=== PATIENT | female | born 1980 | race Caucasian/White ===

== ENCOUNTER 2022-01-20 13:01 | Emergency (ER) | payer MEDICAID, SELFPAY ==
[2022-01-20 13:18] VITALS: BP 125/84; PULSE 86; RESP 18; TEMP 36.2; O2SAT 100; BMI 37.5
--- NOTE | 2022-01-20 13:42 | ED_ITS ---
Documented by User: RODGER Munguia 01/20/22 16:42 HPI - Back Pain/Injury General: Chief Complaint: Back Pain/Injury Stated Complaint: back,leg & neck pain Time Seen by Provider: 01/20/22 13:24 History of Present Illness: Patient states she is having pain in her upper neck upper back low back and going down her left leg. Was treated recently with prednisone and muscle laxer without any significant improvement. Patient has history of sciatica in the past. Patient said this pains been present for 2 weeks. Denies any recent tick bites though her for any significant length of time. Patient denies any fever chills nausea vomiting bowel or bladder problems. Patient says it hurts with movement. 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 Associated symptoms: Deny abdominal pain, chills, fever(s), nausea or vomiting Review of Systems Const: Denies: fever(s), chills or body aches Eyes: Denies: eye discomfort ENMT: Denies: throat pain Card: Denies: chest pain Resp: Denies: dyspnea GI: Denies: abdominal pain, nausea or vomiting Musc: Reports: neck pain, back pain and extremity pain; Denies: muscle cramps or muscle weakness Skin/Breast: Denies: rash Neuro: Denies: headache(s) Psych: Denies: depression or suicidal ideation PFSH ED PFSH: Family History Father Cancer Colon, Lung, and Liver Social History Smoking and tobacco status: current every day smoker Second hand smoke exposure: No Smoking risk assessment/counseling performed?: Yes Alcohol intake: never Desire information about alcohol rehabilitation?: No Counseling given: No Desire information about substance/drug rehabilitation?: No Counseling given: No Adopted: No Caregiver/support person: No Lives independently: Yes Household members: children Housing: House Marital status: Single Number of children: 3 Highest education level completed: 11th Grade service: No Current occupational status: employed History of recent travel: No Physical Exam Const: COMMON NORMALS: no acute distress, patient oriented x3 and alert HENMT: COMMON NORMALS: normocephalic and external ears normal HEAD & SCALP: normocephalic EXTERNAL EAR: Yes external ears normal Eye: COMMON NORMALS: EOMs intact bilaterally Neck/C-Spine: COMMON NORMALS: no JVD CERVICAL SPINE: Yes cervical ROM normal, No Cervical spine tenderness, Yes Paracervical muscle tenderness and No Paracervical spasm Resp: COMMON NORMALS: normal respiratory effort and No use of accessory muscles Cardio: COMMON NORMALS: no JVD GI: INSPECTION: Yes normal to inspection Back/Pelvis: LUMBAR SPINE/LOWER BACK: Yes paraspinal muscle tenderness, No straight leg raise positive right and Yes straight leg raise positive left OTHER: She has tenderness to the muscles upper and lower back and neck area. Also sciatic going down left leg. Just touching the skin seems to cause discomfort to the patient, evidence of rash or redness noted.Trapezius seems to be more tender than anything else. Extremity: COMMON NORMALS: normal to inspection and full ROM Neuro: COMMON NORMALS: patient oriented x3 SENSORIUM/ORIENTATION: Yes alert Psych: COMMON NORMALS: mental status grossly normal Skin: COMMON NORMALS: no rashes or lesions noted GENERAL SKIN EXAM: no rashes or lesions noted Course Vital Signs: Vital signs: Vital Signs Temperature 97.2 F L 01/20/22 13:18 Pulse Rate 86 01/20/22 13:18 Respiratory Rate 18 01/20/22 13:18 Blood Pressure 125/84 01/20/22 13:18 Pulse Oximetry 100 01/20/22 13:18 MDM - Back Pain/Injury Medical Decision Making Presents with generalized muscle tenderness and neck back and sciatica going down the left leg. Patient was treated earlier a week ago with steroids and muscle relaxer did not have much improvement. Patient denies any injury at work. Patient's laboratory studies were negative except elevated CRP, sed rate was normal. Diagnosis atypical muscle pain. Patient's follow-up primary care provider take medication as directed. Off work for the next couple days. Apply moist heat to help with discomfort. Return to the ER for worsening symptoms. Labs : 01/20/22 14:08 01/20/22 14:08 Laboratory Results WBC 8.3 10^3/uL (4.0-10.0) 01/20/22 14:08 RBC 4.86 10^6/uL (4.1-5.3) 01/20/22 14:08 Hgb 14.8 g/dL (11.5-15.3) 01/20/22 14:08 Hct 45.4 % (37.0-47.0) 01/20/22 14:08 MCV 93.4 fl (81-99) 01/20/22 14:08 MCH 30.5 pg (28.0-34.0) 01/20/22 14:08 MCHC 32.6 g/dL (30.0-36.0) 01/20/22 14:08 RDW 14.6 % (12.1-15.1) 01/20/22 14:08 Plt Count 255 10^3/cmm (130-400) 01/20/22 14:08 MPV 9.0 fL (7.4-10.4) 01/20/22 14:08 Neut % (Auto) 63.2 % 01/20/22 14:08 Lymph % (Auto) 29.1 % 01/20/22 14:08 [place] % (Auto) 5.7 % 01/20/22 14:08 Eos % (Auto) 0.6 % 01/20/22 14:08 Baso % (Auto) 0.8 % 01/20/22 14:08 Neut # (Auto) 5.21 10^3/uL (1.8-7.7) 01/20/22 14:08 Lymph # (Auto) 2.4 10^3/uL (0.8-4.8) 01/20/22 14:08 [place] # (Auto) 0.5 10^3/uL (0.2-0.9) 01/20/22 14:08 Eos # (Auto) 0.1 10^3/uL (0.0-0.8) 01/20/22 14:08 Baso # (Auto) 0.1 10^3/uL (0.0-0.1) 01/20/22 14:08 Nucleated RBC % (auto) 0 % 01/20/22 14:08 Nucleated RBCs # 0.0 /100WBC 01/20/22 14:08 ESR 4 mm/hr (0-15) 01/20/22 14:08 Sodium 139 mmol/L (136-145) 01/20/22 14:08 Potassium 3.7 mmol/L (3.5-5.1) 01/20/22 14:08 Chloride 99 mmol/L (98-107) 01/20/22 14:08 Carbon Dioxide 30 mmol/L (22-29) H 01/20/22 14:08 Anion Gap 13.7 (5-19) 01/20/22 14:08 BUN 11 mg/dL (6-20) 01/20/22 14:08 Creatinine 0.7 mg/dL (0.5-0.9) 01/20/22 14:08 GFR Calculation 92.2 mL/min (90-130) 01/20/22 14:08 Glucose 81 mg/dL (65-115) 01/20/22 14:08 Calculated Osmolality 286 mOsm/kg (285-295) 01/20/22 14:08 Calcium 8.6 mg/dL (8.5-10.5) 01/20/22 14:08 C-Reactive Protein 11.9 mg/L (0.0-4.9) H 01/20/22 14:08 Discharge Plan Discharge Patient Disposition: Home Clinical Impression: Muscle pain Condition: Stable Prescriptions: New tramadol 50 mg tablet 50 mg PO TID PRN (Reason: pain) Qty: 14 0RF No Action prednisone 10 mg tablets,dose pack See Rx Instructions PO PER PKG DIR Qty: 21 0RF Rx Instructions: PO PER PKG DIR cyclobenzaprine 10 mg tablet 10 mg PO BID PRN (Reason: muscle spasm) Qty: 14 0RF Discharge Orders: Discharge ED (Routine); Ordered 01/20/22 Ordered By: Chinedu Guerra Referrals: Jolanta Vivar FNP-C [Primary Care Provider] - Discharge Diet: Usual diet Discharge Activity: Increase activity as tolerated Activity Restrictions/Additional Instructions: Follow-up with medical provider as directed. Take medications as prescribed. Return to the ER or your medical provider if condition worsens. Please read and understand discharge instructions. If any questions ask please. 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 Comprehensive Documented by User: Dixon Menezes DO 01/20/22 16:44 HPI - Back Pain/Injury General: Chief Complaint: Back Pain/Injury Stated Complaint: back,leg & neck pain Time Seen by Provider: 01/20/22 13:24 PFSH ED PFSH: Family History Father Cancer Colon, Lung, and Liver Social History Smoking and tobacco status: current every day smoker Second hand smoke exposure: No Smoking risk assessment/counseling performed?: Yes Alcohol intake: never Desire information about alcohol rehabilitation?: No Counseling given: No Desire information about substance/drug rehabilitation?: No Counseling given: No Adopted: No Caregiver/support person: No Lives independently: Yes Household members: children Housing: House Marital status: Single Number of children: 3 Highest education level completed: 11th Grade service: No Current occupational status: employed History of recent travel: No Course Vital Signs: Vital signs: Vital Signs Temperature 97.2 F L 01/20/22 13:18 Pulse Rate 86 01/20/22 13:18 Respiratory Rate 18 01/20/22 13:18 Blood Pressure 125/84 01/20/22 13:18 Pulse Oximetry 100 01/20/22 13:18 MDM - Back Pain/Injury Medical Decision Making Presents with generalized muscle tenderness and neck back and sciatica going down the left leg. Patient was treated earlier a week ago with steroids and muscle relaxer did not have much improvement. Patient denies any injury at work. Patient's laboratory studies were negative except elevated CRP, sed rate was normal. Diagnosis atypical muscle pain. Patient's follow-up primary care provider take medication as directed. Off work for the next couple days. Apply moist heat to help with discomfort. Return to the ER for worsening symptoms. Chart reviewed and patient discussed with midlevel. Agree with assessment and plan. Labs : 01/20/22 14:08 01/20/22 14:08 Laboratory Results WBC 8.3 10^3/uL (4.0-10.0) 01/20/22 14:08 RBC 4.86 10^6/uL (4.1-5.3) 01/20/22 14:08 Hgb 14.8 g/dL (11.5-15.3) 01/20/22 14:08 Hct 45.4 % (37.0-47.0) 01/20/22 14:08 MCV 93.4 fl (81-99) 01/20/22 14:08 MCH 30.5 pg (28.0-34.0) 01/20/22 14:08 MCHC 32.6 g/dL (30.0-36.0) 01/20/22 14:08 RDW 14.6 % (12.1-15.1) 01/20/22 14:08 Plt Count 255 10^3/cmm (130-400) 01/20/22 14:08 MPV 9.0 fL (7.4-10.4) 01/20/22 14:08 Neut % (Auto) 63.2 % 01/20/22 14:08 Lymph % (Auto) 29.1 % 01/20/22 14:08 [place] % (Auto) 5.7 % 01/20/22 14:08 Eos % (Auto) 0.6 % 01/20/22 14:08 Baso % (Auto) 0.8 % 01/20/22 14:08 Neut # (Auto) 5.21 10^3/uL (1.8-7.7) 01/20/22 14:08 Lymph # (Auto) 2.4 10^3/uL (0.8-4.8) 01/20/22 14:08 [place] # (Auto) 0.5 10^3/uL (0.2-0.9) 01/20/22 14:08 Eos # (Auto) 0.1 10^3/uL (0.0-0.8) 01/20/22 14:08 Baso # (Auto) 0.1 10^3/uL (0.0-0.1) 01/20/22 14:08 Nucleated RBC % (auto) 0 % 01/20/22 14:08 Nucleated RBCs # 0.0 /100WBC 01/20/22 14:08 ESR 4 mm/hr (0-15) 01/20/22 14:08 Sodium 139 mmol/L (136-145) 01/20/22 14:08 Potassium 3.7 mmol/L (3.5-5.1) 01/20/22 14:08 Chloride 99 mmol/L (98-107) 01/20/22 14:08 Carbon Dioxide 30 mmol/L (22-29) H 01/20/22 14:08 Anion Gap 13.7 (5-19) 01/20/22 14:08 BUN 11 mg/dL (6-20) 01/20/22 14:08 Creatinine 0.7 mg/dL (0.5-0.9) 01/20/22 14:08 GFR Calculation 92.2 mL/min (90-130) 01/20/22 14:08 Glucose 81 mg/dL (65-115) 01/20/22 14:08 Calculated Osmolality 286 mOsm/kg (285-295) 01/20/22 14:08 Calcium 8.6 mg/dL (8.5-10.5) 01/20/22 14:08 C-Reactive Protein 11.9 mg/L (0.0-4.9) H 01/20/22 14:08 Discharge Plan Discharge Patient Disposition: Home Clinical Impression: Muscle pain Condition: Stable Prescriptions: New tramadol 50 mg tablet 50 mg PO TID PRN (Reason: pain) Qty: 14 0RF No Action prednisone 10 mg tablets,dose pack See Rx Instructions PO PER PKG DIR Qty: 21 0RF Rx Instructions: PO PER PKG DIR cyclobenzaprine 10 mg tablet 10 mg PO BID PRN (Reason: muscle spasm) Qty: 14 0RF Discharge Orders: Discharge ED (Routine); Ordered 01/20/22 Ordered By: Chinedu Guerra Referrals: Jolanta Vivar FNP-C [Primary Care Provider] - Discharge Diet: Usual diet Discharge Activity: Increase activity as tolerated Activity Restrictions/Additional Instructions: Follow-up with medical provider as directed. Take medications as prescribed. Return to the ER or your medical provider if condition worsens. Please read and understand discharge instructions. If any questions ask please. 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
[2022-01-20] MEDS: ketorolac 60 mg/2 mL INJ IM (13:58)
[2022-01-20] MEDS: acetaminophen-codeine 300-30mg Tablet 1 TAB PO (13:59)
[2022-01-20 14:14] LABS: Basophils # 0.1 10^3/uL (0.0-0.1); Basophils % 0.8 %; Eosinophils # 0.1 10^3/uL (0.0-0.8); Eosinophils % 0.6 %; Hematocrit 45.4 % (37.0-47.0); Hemoglobin 14.8 g/dL (11.5-15.3); Lymphocytes # 2.4 10^3/uL (0.8-4.8); Lymphocytes % 29.1 %; Mean Corpuscular HGB Conc 32.6 g/dL (30.0-36.0); Mean Corpuscular Hemoglobin 30.5 pg (28.0-34.0); Mean Corpuscular Volume 93.4 fl (81-99); Monocytes # 0.5 10^3/uL (0.2-0.9); Monocytes % 5.7 %; Neutrophils # 5.21 10^3/uL (1.8-7.7); Neutrophils % 63.2 %; Nucleated Red Blood Cells % 0 %; Platelet Count 255 10^3/cmm (130-400); Red Blood Count 4.86 10^6/uL (4.1-5.3); Red Cell Distribution Width 14.6 % (12.1-15.1); White Blood Count 8.3 10^3/uL (4.0-10.0)
[2022-01-20 14:23] LABS: Erythrocyte Sedimentation Rate 4 mm/hr (0-15)
[2022-01-20 14:53] LABS: Anion Gap 13.7 (5-19); Blood Urea Nitrogen 11 mg/dL (6-20); C Reactive Protein 11.9 mg/L (0.0-4.9); Calcium 8.6 mg/dL (8.5-10.5); Carbon Dioxide 30 mmol/L (22-29); Chloride 99 mmol/L (98-107); Glomerular Filtration Rate 92.2 mL/min (90-130); Glucose 81 mg/dL (65-115); Osmolality Calculated 286 mOsm/kg (285-295); Potassium 3.7 mmol/L (3.5-5.1); Sodium 139 mmol/L (136-145)
== END 2022-01-20 15:18 | disposition home or self-care (01) ==
PROVIDERS: Emergency Provider Nurse Practitioner Family; PCP Nurse Practitioner Family
DX: M79.18 Myalgia, other site (principal); M54.42 Lumbago with sciatica, left side; R79.82 Elevated C-reactive protein (CRP); F17.200 Nicotine dependence, unspecified, uncomplicated
CPT/HCPCS: 80048; 85025; 85651; 86140; 96372; 99283; J1885

== ENCOUNTER → 2022-07-21 11:49 | Outpatient (BNVA) | payer MEDICAID, SELFPAY | PROVIDERS: PCP Nurse Practitioner Family; Visit Provider Nurse Practitioner | DX: M26.629 Arthralgia of temporomandibular joint, unspecified side (principal); F41.1 Generalized anxiety disorder | CPT/HCPCS: 80053; 82607; 85025 ==

== ENCOUNTER → 2022-11-06 08:30 | Outpatient (BNVA) | payer MEDICAID, SELFPAY | PROVIDERS: PCP Nurse Practitioner Family; Visit Provider Nurse Practitioner | DX: E53.8 Deficiency of other specified B group vitamins (principal) | CPT/HCPCS: 82607 ==

== ENCOUNTER → 2023-02-05 14:28 | Outpatient (BNVA) | payer MEDICAID, SELFPAY | PROVIDERS: PCP Nurse Practitioner Family; Visit Provider Nurse Practitioner | DX: E53.8 Deficiency of other specified B group vitamins (principal) | CPT/HCPCS: 80053; 82607 ==

== ENCOUNTER 2023-02-18 12:01 | Outpatient (CLI) | payer MEDICAID, SELFPAY ==
--- NOTE | 2023-02-18 12:09 | MM_ITS ---
WS: [id number] BILATERAL 3D TOMOSYNTHESIS DIGITAL SCREENING MAMMOGRAPHY WITH CAD CLINICAL INFORMATION: Z12.39 - Encounter for other screening for malignant neop... HISTORY: Screening mammogram. No current complaints. COMPARISON: None. TECHNIQUE: Bilateral CC and MLO views. FINDINGS: The breasts are composed of nodular heterogeneous fibroglandular density tissue, which can limit the detection of small underlying mass lesions. No suspicious mass, asymmetry, calcifications, or archite ctural distortion. No evidence of malignancy. Incidental punctate calcifications. Vascular calcificat ion. MM/[place] [id number] IMPRESSION: BI-RADS: 2-Benign FOLLOW UP: 1 Year Follow-up Recommend return to annual screening mammography.
== END 2023-02-18 12:02 | disposition home or self-care (01) ==
PROVIDERS: PCP Nurse Practitioner Family; Visit Provider Nurse Practitioner
DX: Z12.31 Encounter for screening mammogram for malignant neoplasm of breast (principal)
CPT/HCPCS: 77063; 77067

== ENCOUNTER 2023-03-13 23:39 | Emergency (ER) | payer MEDICAID, SELFPAY ==
[2023-03-13 23:44] VITALS: BP 143/91; PULSE 91; RESP 14; O2SAT 97
--- NOTE | 2023-03-13 23:44 | ECG_ITS ---
[facility] Test Date: 2023-03-13 Pat Name: Nina Khalil Department: Room: Gender: Female Webbing Inspector: : 1980 Requested By: Kelly Jurado Order Number: [id number] Rhea MD: Amy Rivera M.D. Measurements Intervals [place] Rate: 91 P: 34 MO: 163 QRS: 5 QRSD: 93 T: 0 QT: 346 QTc: 428 Interpretive Statements SINUS RHYTHM LOW QRS VOLTAGE IN PRECORDIAL LEADS [QRS DEFLECTION < 1.0 mV IN CHEST LEADS] No previous ECG available for comparison Electronically Signed On 03-14-2023 15:36:46 CDT by Amy Rivera M.D. [id number]
--- NOTE | 2023-03-13 23:44 | XRR_ITS ---
PROCEDURE INFORMATION: Exam: XR Chest Exam date and time: 03/14/2023 12:05 AM Age: 42 years old Clinical indication: Pain; Chest pressure; Additional info: Cp TECHNIQUE: Imaging protocol: Radiologic exam of the chest. Views: 1 view. COMPARISON: CR XR cervical spine 3V* [id number] 01/19/2019 3:30 PM FINDINGS: Lungs: Unremarkable. No consolidation. Pleural spaces: Unremarkable. No pleural effusion. No pneumothorax. Heart/Mediastinum: Unremarkable. No cardiomegaly. Bones/joints: Unremarkable. XR/XR chest 1V portable [id number] IMPRESSION: No acute findings.
[2023-03-13 23:47] VITALS: BP 109/63; PULSE 77; RESP 16; TEMP 36.7; O2SAT 99
[2023-03-14 00:11] LABS: Basophils # 0.1 10^3/uL (0.0-0.1); Basophils % 1.2 %; Eosinophils # 0.1 10^3/uL (0.0-0.8); Eosinophils % 1.6 %; Hematocrit 45.7 % (37.0-47.0); Hemoglobin 14.5 g/dL (11.5-15.3); Lymphocytes # 2.8 10^3/uL (0.8-4.8); Lymphocytes % 36.6 %; Mean Corpuscular HGB Conc 31.7 g/dL (30.0-36.0); Mean Corpuscular Hemoglobin 29.1 pg (28.0-34.0); Mean Corpuscular Volume 91.6 fl (81-99); Mean Platelet Volume 9.1 fL (7.4-10.4); Monocytes # 0.5 10^3/uL (0.2-0.9); Monocytes % 6.7 %; Neutrophils # 4.11 10^3/uL (1.8-7.7); Neutrophils % 53.6 %; Nucleated Red Blood Cells % 0 %; Platelet Count 244 10^3/cmm (130-400); Red Blood Count 4.99 10^6/uL (4.1-5.3); Red Cell Distribution Width 14.5 % (12.1-15.1); White Blood Count 7.7 10^3/uL (4.0-10.0)
--- NOTE | 2023-03-14 00:11 | W.ED.CHESTPA ---
HPI - Chest Pain General: Chief Complaint: Chest Pain Stated Complaint: chest pains, dizziness Time Seen by Provider: 03/13/23 23:43 Source: patient Mode of arrival: ambulatory Limitations: no limitations History of Present Illness: 42-year-old female states she has been having some dizziness over the last 2 weeks she states that she is feeling the room spinning its been mild in nature she is taken meclizine states that it has helped she states that her main concern was today started having some sharp chest pain this evening its in the middle of her chest that chest is worse with palpation improved with rest she denies any dyspnea or nausea or diaphoresis. 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 History of bleeding ulcers TMJ arthralgia Right Surgical History No significant past surgical history Family History Father Cancer Colon, Lung, and Liver Mother Hypertension Lung disease Social History Smoking and tobacco status: current every day smoker Second hand smoke exposure: No Smoking risk assessment/counseling performed?: Yes Alcohol intake: never Desire information about alcohol rehabilitation?: No Counseling given: No Substance/Drug Use: never Desire information about substance/drug rehabilitation?: No Counseling given: No Adopted: No Caregiver/support person: No Lives independently: Yes Household members: children Housing: House Marital status: Single Number of children: 3 Highest education level completed: 11th Grade service: No Current occupational status: employed Physical Exam Const: COMMON NORMALS: no acute distress, patient oriented x3 and healthy appearing HENMT: COMMON NORMALS: normocephalic and atraumatic HEAD & SCALP: normocephalic and atraumatic Neck/C-Spine: COMMON NORMALS: full ROM and supple Chest: COMMONS NORMALS: normal inspection of the chest OTHER: Point tenderness noted to the chest Resp: COMMON NORMALS: normal respiratory effort, No retractions, No use of accessory muscles and clear to auscultation bilaterally AUSCULTATION: clear to auscultation bilaterally Cardio: COMMON NORMALS: regular rate, regular rhythm and No murmurs present (Cardio) RATE: regular rate RHYTHM: regular rhythm GI: COMMON NORMALS: Normal to inspection, nondistended, normoactive bowel sounds present, Soft to palpation, non-tender and no masses PALPATION: Yes Soft to palpation Extremity: COMMON NORMALS: normal to inspection and full ROM Neuro: COMMON NORMALS: patient oriented x3, moves all extremities and no focal motor deficits Psych: COMMON NORMALS: mental status grossly normal, Normal thought process present and cooperative THOUGHT PROCESS: Normal thought process present Skin: COMMON NORMALS: no rashes or lesions noted and no wounds GENERAL SKIN EXAM: no rashes or lesions noted Course Vital Signs: Vital signs: Vital Signs Temperature 98.1 F 03/13/23 23:47 Pulse Rate 77 03/13/23 23:47 Respiratory Rate 16 03/13/23 23:47 Blood Pressure 109/63 03/13/23 23:47 Pulse Oximetry 99 03/13/23 23:47 Oxygen Delivery Me thod Room Air 03/13/23 23:47 MDM - Chest Pain Medical Decision Making Patient presents for chest pains likely chest wall pain she is point tender in the center of her chest initial troponin is normal her story is atypical I do not believe she has acute coronary syndrome she is stable for discharge x-ray is normal as well she has no signs of a stroke her vertigo is likely peripheral and improves with meclizine she is to follow-up with PCP and return if worsening. Medical Records I reviewed the patient's medical records. Lab Data I reviewed the patient's lab results. 03/14/23 00:00 03/13/23 23:59 Laboratory Results WBC 7.7 10^3/uL (4.0-10.0) 03/14/23 00:00 RBC 4.99 10^6/uL (4.1-5.3) 03/14/23 00:00 Hgb 14.5 g/dL (11.5-15.3) 03/14/23 00:00 Hct 45.7 % (37.0-47.0) 03/14/23 00:00 MCV 91.6 fl (81-99) 03/14/23 00:00 MCH 29.1 pg (28.0-34.0) 03/14/23 00:00 MCHC 31.7 g/dL (30.0-36.0) 03/14/23 00:00 RDW 14.5 % (12.1-15.1) 03/14/23 00:00 Plt Count 244 10^3/cmm (130-400) 03/14/23 00:00 MPV 9.1 fL (7.4-10.4) 03/14/23 00:00 Neut % (Auto) 53.6 % 03/14/23 00:00 Lymph % (Auto) 36.6 % 03/14/23 00:00 [place] % (Auto) 6.7 % 03/14/23 00:00 Eos % (Auto) 1.6 % 03/14/23 00:00 Baso % (Auto) 1.2 % 03/14/23 00:00 Neut # (Auto) 4.11 10^3/uL (1.8-7.7) 03/14/23 00:00 Lymph # (Auto) 2.8 10^3/uL (0.8-4.8) 03/14/23 00:00 [place] # (Auto) 0.5 10^3/uL (0.2-0.9) 03/14/23 00:00 Eos # (Auto) 0.1 10^3/uL (0.0-0.8) 03/14/23 00:00 Baso # (Auto) 0.1 10^3/uL (0.0-0.1) 03/14/23 00:00 Nucleated RBC % (auto) 0 % 03/14/23 00:00 Nucleated RBCs # 0.0 /100WBC 03/14/23 00:00 Sodium 141 mmol/L (136-145) 03/13/23 23:59 Potassium 3.9 mmol/L (3.5-5.1) 03/13/23 23:59 Chloride 101 mmol/L (98-107) 03/13/23 23:59 Carbon Dioxide 28 mmol/L (22-29) 03/13/23 23:59 Anion Gap 15.9 (5-19) 03/13/23 23:59 BUN 12 mg/dL (6-20) 03/13/23 23:59 Creatinine 0.9 mg/dL (0.5-0.9) 03/13/23 23:59 Glucose 80 mg/dL (65-115) 03/13/23 23:59 Calculated Osmolality 291 mOsm/kg (285-295) 03/13/23 23:59 Calcium 9.5 mg/dL (8.5-10.5) 03/13/23 23:59 Total Bilirubin 0.2 mg/dL (0.15-1.2) 03/13/23 23:59 AST 19 U/L (0-32) 03/13/23 23:59 ALT 15 U/L (0-33) 03/13/23 23:59 Alkaline Phosphatase 96 U/L (35-105) 03/13/23 23:59 Troponin T Baseline 6 ng/L (0-10) 03/13/23 23:59 Total Protein 7.2 g/dL (6.6-8.7) 03/13/23 23:59 Albumin 4.3 g/dL (3.5-5.2) 03/13/23 23:59 Globulin 2.9 g/dL (1.3-4.6) 03/13/23 23:59 EKG Data EKG 1: I personally reviewed and interpreted this EKG as follows: EKG interpretation date: 03/13/23 EKG interpretation time: 23:45 Interpretation: nsr hr [address] or t wave abnormalities qrs 93 qtc 395 Discharge Plan Discharge Patient Disposition: Home Clinical Impression: Chest pain, Dizziness Condition: Stable Prescriptions: No Action cyanocobalamin (vitamin B-12) 1,000 mcg/mL solution 1,000 mcg IM .monthly Qty: 1 2RF hydroxyzine pamoate 25 mg capsule See Rx Instructions PO .COMPLEX Qty: 90 2RF Rx Instructions: 25mg AM and 50mg PM orally; nortriptyline 75 mg capsule 75 mg PO .at bedtime Qty: 30 2RF (DME) syringe with needle 3 mL 22 gauge x 1 syringe See Rx Instructions .ROUTE .MEDSUPPLY Qty: 1 2RF Rx Instructions: As directed sucralfate [Carafate] 100 mg/mL suspension 10 ml PO BID Qty: 600 2RF albuterol sulfate 90 mcg/actuation HFA aerosol inhaler 2 puff inhalation QID PRN (Reason: shortness of breath or wheezing) Qty: 6.7 0RF meclizine 25 mg tablet 25 mg PO BID PRN (Reason: dizziness) Qty: 60 0RF duloxetine [Cymbalta] 30 mg capsule,delayed release(DR/EC) 30 mg PO BID Qty: 60 2RF Discharge Orders: Discharge ED (Routine); Ordered 03/14/23 Ordered By: Kelly Jurado Referrals: Jolanta Vivar FNP-C [Primary Care Provider] - 1-3 days Discharge Diet: Advance as tolerated Discharge Activity: Resume usual activity Patient Instructions: Chest Pain (ED) Coding Level of Care Code ED Department Specialist for Madeline Ramos
[2023-03-14 00:31] LABS: Troponin(5th) Baseline 6 ng/L (0-10)
[2023-03-14 00:34] LABS: Alanine Aminotransferase 15 U/L (0-33); Albumin Level 4.3 g/dL (3.5-5.2); Alkaline Phosphatase 96 U/L (35-105); Anion Gap 15.9 (5-19); Aspartate Amino Transferase 19 U/L (0-32); Blood Urea Nitrogen 12 mg/dL (6-20); Calcium 9.5 mg/dL (8.5-10.5); Carbon Dioxide 28 mmol/L (22-29); Chloride 101 mmol/L (98-107); Globulin 2.9 g/dL (1.3-4.6); Glomerular Filtration Rate 68.7 mL/min (90-130); Glucose 80 mg/dL (65-115); Osmolality Calculated 291 mOsm/kg (285-295); Potassium 3.9 mmol/L (3.5-5.1); Sodium 141 mmol/L (136-145); Total Bilirubin 0.2 mg/dL (0.15-1.2); Total Protein 7.2 g/dL (6.6-8.7)
[2023-03-14 01:12] VITALS: BP 116/94; PULSE 79; RESP 16; O2SAT 97
== END 2023-03-14 01:14 | disposition home or self-care (01) ==
PROVIDERS: Emergency Provider Emergency Medicine; PCP Nurse Practitioner Family
DX: R42 Dizziness and giddiness (principal); R07.9 Chest pain, unspecified; F17.210 Nicotine dependence, cigarettes, uncomplicated
CPT/HCPCS: 71045; 80053; 84484; 85025; 93005; 99285; J2270; J2405

== ENCOUNTER 2023-04-03 15:48 | Outpatient (CLI) | payer MEDICAID, SELFPAY ==
--- NOTE | 2023-04-03 16:00 | MR_ITS ---
WS: [id number] MRI HEAD WITHOUT CONTRAST TECHNIQUE: Sagittal T1, T2 axial, T2 axial FLAIR, axial and coronal T1 images, axial susceptibility w eighted imaging, axial diffusion weighted images, and coronal T2 images were obtained. CLINICAL INFORMATION: R51.9 - Headache, unspecified COMPARISON: CT January 05, 2017 FINDINGS: No evidence restricted diffusion to suggest acute ischemia. Ventricular system and basal cisterns are patent. One or 2 tiny foci of T2 hyperintensity in the subcortical white matter of doubtful clinical significance but can be seen with migraine headaches. No significant parenchymal volume loss. Normal posterior fossa. Normal vascular flow voids at the skull base. No extra-axial fluid collections. No evidence of mass or mass effect. Paranasal sinuses and mastoid air cells are well aerated. Normal posterior nasopharynx and parapharyn geal fat. No hemosiderin on susceptibly weighted images. Normal optic chiasm and pituitary infundibul um. Temporal lobes and hippocampal formations are normal in appearance. MR/MR head wo con* [id number] IMPRESSION: 1. No evidence restricted diffusion to suggest acute ischemia. 2. One or 2 tiny foci of T2 hyperintensity in the subcortical white matter of doubtful clinical significance but can be seen with migraine headaches. 3. No other suspicious intracranial signal abnormalities. 4. No hemosiderin on susceptibly weighted images. 5. No other suspicious findings.
== END 2023-04-03 15:49 | disposition home or self-care (01) ==
LOC: RAD 15:49
PROVIDERS: PCP Nurse Practitioner Family; Visit Provider Nurse Practitioner
DX: R51.9 Headache, unspecified (principal); R42 Dizziness and giddiness
CPT/HCPCS: 70551

== ENCOUNTER → 2023-04-20 15:30 | Outpatient (BNVA) | payer MEDICAID, SELFPAY | PROVIDERS: PCP Nurse Practitioner Family; Visit Provider Nurse Practitioner | DX: E53.8 Deficiency of other specified B group vitamins (principal) | CPT/HCPCS: 80053; 82607 ==

== ENCOUNTER → 2023-07-20 15:51 | Outpatient (BNVA) | payer MEDICAID, SELFPAY | PROVIDERS: PCP Nurse Practitioner Family; Visit Provider Nurse Practitioner | DX: E53.8 Deficiency of other specified B group vitamins (principal); F41.1 Generalized anxiety disorder; M26.629 Arthralgia of temporomandibular joint, unspecified side; Z87.11 Personal history of peptic ulcer disease; G43.109 Migraine with aura, not intractable, without status migrainosus; E55.9 Vitamin D deficiency, unspecified; M54.9 Dorsalgia, unspecified; B02.23 Postherpetic polyneuropathy | CPT/HCPCS: 82306; 82607; 83735; 84443 ==

== ENCOUNTER → 2023-07-22 13:16 | Outpatient (BNVA) | payer MEDICAID, SELFPAY | PROVIDERS: PCP Nurse Practitioner Family; Visit Provider Nurse Practitioner Family | DX: M54.9 Dorsalgia, unspecified (principal) | CPT/HCPCS: 72072; 72100 ==

== ENCOUNTER → 2023-10-29 11:04 | Outpatient (BNVA) | payer MEDICAID, SELFPAY | PROVIDERS: PCP Nurse Practitioner; Visit Provider Nurse Practitioner | DX: E53.8 Deficiency of other specified B group vitamins (principal); E55.9 Vitamin D deficiency, unspecified; Z79.899 Other long term (current) drug therapy | CPT/HCPCS: 80053; 82306; 82607; 85025; 86003 ==

== ENCOUNTER → 2024-01-07 11:34 | Outpatient (BNVA) | payer MEDICAID, SELFPAY | PROVIDERS: PCP Nurse Practitioner; Visit Provider Nurse Practitioner | DX: E53.8 Deficiency of other specified B group vitamins (principal); E55.9 Vitamin D deficiency, unspecified; K21.9 Gastro-esophageal reflux disease without esophagitis | CPT/HCPCS: 80048; 82306; 82607 ==

== ENCOUNTER 2024-06-08 07:24 | Outpatient (CLI) | payer MEDICAID, SELFPAY ==
--- NOTE | 2024-06-08 07:30 | USCV_ITS ---
Nina Khalil Age: 43 Gender: F : 1980 Exam Date: 06/08/2024 07:40 Ordering Phys: Meet Joshua Technologist: [place] [facility] [place]: lt leg pain and swelling PROCEDURES: Venous duplex imaging was performed in only the left lower extremity. The following venous structures were evaluated: common femoral vein, profunda vein, proximal portion of the greater saphenous vein, superficial femoral vein, and the popliteal vein. In addition, the posterior tibial and peroneal trunk were evaluated. FINDINGS: Normal 2-D Doppler and augmentation and compressibility throughout the lower extremity venous structures. Additional imaging through the proximal calf veins also reveals no thrombus. Limited evaluation of the greater saphenous vein is patent with no thrombus. CONCLUSIONS No DVT left lower extremity. Technically limited 2D images. Dr. Sally Styles DO (Electronically Signed) Final Date: 08 June 2024 09:54 S
== END 2024-06-08 07:25 | disposition home or self-care (01) ==
LOC: RAD 07:24
PROVIDERS: PCP Nurse Practitioner; Visit Provider Nurse Practitioner
DX: M79.662 Pain in left lower leg (principal)
CPT/HCPCS: 93971

== ENCOUNTER 2024-06-10 10:54 | Emergency (ER) | payer MEDICAID, SELFPAY ==
[2024-06-10 12:20] VITALS: BP 102/71; PULSE 86; RESP 18; TEMP 36.6; O2SAT 96; BMI 43.0
--- NOTE | 2024-06-10 13:47 | ED_ITS ---
HPI - Extremity Problem General: Chief complaint: Extremity Problem,Nontraumatic Stated complaint: lt leg pain Time Seen by Provider: 06/10/24 13:34 Source: patient Mode of arrival: ambulatory Limitations: no limitations History of Present Illness: Patient is a 43-year-old female presents to ED today with a complaint of left lower extremity pain. Patient states she has had pain for a few weeks. She has not noticed any swelling to the leg. She has not noticed any color or temperature changes to the leg. She feels like pain is progressively worsening now affecting her foot. She states initially it was just her calf. She feels like sometimes when she walks the leg/calf spasms. She is not having muscle cramps elsewhere. She is not having any back or hip pain. Denies numbness, tingling, loss of sensation. MD Complaint: extremity pain Onset (ago): week(s) Pain Consistency: constant Location: left and lower extremity Radiation: none Relieving factors: nothing Exacerbating factors: walking Associated symptoms: Reports no associated symptoms; Deny chest pain, fever(s) or rash Related Data Previous Rx's Medication Instructions Recorded albuterol sulfate 90 mcg/actuation 2 puff inhalation QID PRN 12/10/22 aerosol inhaler shortness of breath or wheezing #6.7 grams cyanocobalamin (vitamin B-12) 1,000 mcg IM .monthly #1 mL 06/02/24 1,000 mcg/mL injection solution duloxetine 30 mg capsule,delayed 30 mg PO BID #60 caps 06/02/24 release (Cymbalta) famotidine 40 mg tablet (Pepcid) 40 mg PO DAILY #30 tabs 06/02/24 hydroxyzine pamoate 25 mg capsule See Rx Instructions PO .COMPLEX 06/02/24 anxiety #90 caps magnesium oxide 400 mg PO BID #60 tabs 06/02/24 nortriptyline 75 mg capsule 75 mg PO .at bedtime #30 caps 06/02/24 polyethylene glycol 3350 17 17 g PO BID PRN constipation #510 06/02/24 gram/dose oral powder (Miralax) grams propranolol 10 mg tablet 10 mg PO BID #60 tabs 06/02/24 syringe with needle 3 mL 22 gauge #1 ea 06/02/24 x 1 tizanidine 4 mg tablet 4 mg PO BID muscle spasticity #60 06/02/24 tabs zonisamide 100 mg capsule 100 mg PO BID #60 caps 06/02/24 Allergies Allergy/AdvReac Type Severity Reaction Status Date / Time hydrocodone Allergy ADR-Agitate Verified 06/02/24 09:13 d NSAIDS (Non-Steroidal Allergy ADR-Abdominal Verified 06/02/24 09:13 Anti-Inflamma Pain Review of Systems Const: Denies: fever(s), chills, body aches, fatigue or malaise Card: Denies: chest pain Resp: Denies: dyspnea Musc: Reports: extremity pain and muscle cramps; Denies: neck pain, back pain, extremity swelling, joint redness, joint warmth, limited range of motion, muscle weakness, decrease in muscle mass, loss of height or deformity Skin/Breast: Denies: rash Neuro: Denies: headache(s), numbness in extremities, weakness in extremities or sensory changes PFSH ED PFSH: Medical History Obesity, morbid, BMI 40.0-49.9 Migraine headache with aura TMJ arthralgia Right History of bleeding ulcers Facial paralysis/[place] palsy Right Surgical History No significant past surgical history Family History Father Cancer Colon, Lung, and Liver Mother Hypertension Lung disease Social History Smoking and tobacco/nicotine status: current every day tobacco/nicotine user Second hand smoke exposure: No Alcohol intake: never Substance/Drug Use: never Adopted: No Caregiver/support person: No Lives independently: Yes Household members: children Housing: House Marital status: Single Number of children: 3 Highest education level completed: 11th Grade service: No Current occupational status: employed Female Reproductive History: Date of last menstrual period: 06/05/23 Physical Exam Const: COMMON NORMALS: no acute distress, patient oriented x3, no limitations, alert and well nourished GENERAL APPEARANCE: cooperative NUTRITIONAL APPEARANCE: obese morbidly obese (BMI of 43) ORIENTATION/CONSCIOUSNESS: Yes awake, Yes oriented to person, Yes oriented to place and Yes oriented to time Resp: COMMON NORMALS: normal respiratory effort and clear to auscultation bilaterally AUSCULTATION: clear to auscultation bilaterally Cardio: COMMON NORMALS: regular rate and regular rhythm RATE: regular rate RHYTHM: regular rhythm Extremity: COMMON NORMALS: normal to inspection, full ROM, capillary refill normal, no joint enlargement, no clubbing, cyanosis or edema and no pedal edema GENERAL: Yes normal exam except as noted OTHER: TTP L LE from posterior knee distally through calf and foot; no edema noted; no color/temp changes when compared to R; both legs are cool to the touch with difficult to appreciate pulses; sensory intact; negative Cabrera's Neuro: COMMON NORMALS: patient oriented x3, moves all extremities, no focal motor deficits, no sensory deficits noted and gait normal SENSORIUM/ORIENTATION: Yes alert, Yes oriented to person, Yes oriented to place and Yes oriented to time Skin: COMMON NORMALS: no rashes or lesions noted GENERAL SKIN EXAM: no rashes or lesions noted Course Vital Signs: Vital signs: Vital Signs Temperature 97.9 F 06/10/24 12:20 Pulse Rate 86 06/10/24 12:20 Respiratory Rate 18 06/10/24 12:20 Blood Pressure 102/71 06/10/24 12:20 Pulse Oximetry 96 06/10/24 12:20 Oxygen Delivery Me thod Room Air, Nasal C annula 06/10/24 12:20 MDM - Extremity (Nontraumatic) Medical Decision Making XRs unlikely to be of benefit given no mechanism of trauma. US arterial/venous unremarkable. No Villaseñor's. Does not sound like this is originating from lumbar/sciatic. I do not suspect emergent etiology. Recommend she follow up with PCP for further evaluation. Lab Data Radiology Impressions Duplex Scan Lower Extremity Artery 06/10/24 13:48 IMPRESSION: No significant arterial stenosis or occlusion. XR interpretation done by ED provider, pending radiology final review (per US tech-negative for DVT; arterial US finalized at time of discharge) Discharge Plan Discharge Patient Disposition: Home Clinical Impression: Acute pain of left lower extremity Condition: Stable Prescriptions: No Action albuterol sulfate 90 mcg/actuation HFA aerosol inhaler 2 puff inhalation QID PRN (Reason: shortness of breath or wheezing) Qty: 6.7 0RF tizanidine 4 mg tablet 4 mg PO BID Qty: 60 2RF magnesium oxide 400 mg magnesium tablet 400 mg PO BID Qty: 60 0RF duloxetine [Cymbalta] 30 mg capsule,delayed release(DR/EC) 30 mg PO BID Qty: 60 2RF cyanocobalamin (vitamin B-12) 1,000 mcg/mL solution 1,000 mcg IM .monthly Qty: 1 2RF nortriptyline 75 mg capsule 75 mg PO .at bedtime Qty: 30 2RF hydroxyzine pamoate 25 mg capsule See Rx Instructions PO .COMPLEX Qty: 90 2RF Rx Instructions: 25mg AM and 50mg PM orally; famotidine [Pepcid] 40 mg tablet 40 mg PO DAILY Qty: 30 5RF polyethylene glycol 3350 [Miralax] 17 gram/dose powder 17 g PO BID PRN (Reason: constipation) Qty: 510 2RF propranolol 10 mg tablet 10 mg PO BID Qty: 60 2RF Rx Instructions: she does not tolerate 20mg (DME) syringe with needle 3 mL 22 gauge x 1 syringe See Rx Instructions .ROUTE .MEDSUPPLY Qty: 1 2RF Rx Instructions: As directed zonisamide 100 mg capsule 100 mg PO BID Qty: 60 2RF Discharge Orders: Discharge ED (Routine); Ordered 06/10/24 Ordered By: Alida Juarez Referrals: Meet Joshua, [employer] [Primary Care Provider] - Activity Restrictions/Additional Instructions: As we discussed ultrasounds of your arterial and venous systems are unremarkable. I do not have any suspicion for emergent etiology at this time thus are recommending you follow-up with your primary care provider for further evaluation into your discomfort. I hope you begin to feel better soon. Coding Level of Care Code ED Petroleum Transport Driver for Madeline Ramos
--- NOTE | 2024-06-10 13:48 | USCV_ITS ---
Nina Khalil Age: 43 Gender: F : 1980 Exam Date: 06/10/2024 14:28 Ordering Phys: Alida Juarez Technologist: HA [place] [facility] [place]: [place] HISTORY: LT calf pain into foot PROCEDURES: Venous duplex imaging was performed in only the left lower extremity. The following venous structures were evaluated: common femoral vein, profunda vein, proximal portion of the greater saphenous vein, superficial femoral vein, and the popliteal vein. In addition, the posterior tibial and peroneal trunk were evaluated. Serial compression, augmentation maneuvers, and spectral Doppler flow evaluation were performed. FINDINGS: Normal 2-D Doppler and augmentation and compressibility throughout the lower extremity venous structures. Additional imaging through the proximal calf veins also reveals no thrombus. Limited evaluation of the greater saphenous vein is patent with no thrombus. CONCLUSIONS No DVT left lower extremity. Dr. Sally Styles DO (Electronically Signed) Final Date: 10 June 2024 15:54 S
--- NOTE | 2024-06-10 13:48 | USR_ITS ---
PROCEDURE INFORMATION: Exam: US Duplex Left Lower Extremity Arteries Or Arterial Bypass Grafts Exam date and time: 06/10/2024 2:35 PM Age: 43 years old Clinical indication: Pain; Leg, lower; Left TECHNIQUE: Imaging protocol: Left Real-time duplex scan of the arteries or arterial bypass grafts of the left lower extremity with 2-D mar scale, color Doppler flow and spectral waveform analysis. Images documented and saved. COMPARISON: [place] [id number] 06/10/2024 2:28 PM FINDINGS: Left external iliac artery: The left common iliac artery shows no evidence of a significant stenosis. Left common femoral artery: Left common femoral artery is patent and without stenosis or occlusion. Left superficial femoral artery: Left superficial femoral artery is patent and without stenosis or occlusion. Left popliteal artery: Left popliteal artery is patent and without stenosis or occlusion. Left calf/foot arteries: Left posterior tibial artery is patent and without stenosis or occlusion. Left dorsalis pedis artery is patent and without stenosis or [place]. US/[place] [id number] IMPRESSION: No significant arterial stenosis or occlusion.
[2024-06-10 15:57] VITALS: BP 114/76; PULSE 89; O2SAT 96
== END 2024-06-10 15:58 | disposition home or self-care (01) ==
PROVIDERS: Emergency Provider Physician Assistant; PCP Nurse Practitioner
DX: M79.605 Pain in left leg (principal); Z72.0 Tobacco use
CPT/HCPCS: 93926; 93971; 99284

== ENCOUNTER 2024-08-12 16:54 | Emergency (ER) | payer MEDICAID, SELFPAY ==
[2024-08-12 17:11] VITALS: BP 115/82; PULSE 70; RESP 18; TEMP 36.6; O2SAT 99; BMI 42.4
[2024-08-12] MEDS: dexamethasone 10 mg/mL INJ IM (20:22)
[2024-08-12] MEDS: orphenadrine 30 mg/mL Inj 2 mL 60 MG IM (20:22)
--- NOTE | 2024-08-12 23:31 | W.ED.BACK ---
HPI - Back Pain/Injury General: Chief Complaint: Back Pain/Injury Stated Complaint: back and hip pain Time Seen by Provider: 08/12/24 19:30 Source: patient Mode of arrival: ambulatory Limitations: no limitations History of Present Illness: Patient is a 44-year-old female present emergency department complaining of back pain that has been bothering her for months. She states that the pain is radiating down the entirety of the left leg, denies any trauma or heavy lifting. She states that she was prescribed pregabalin and muscle relaxers recently, this has not done much. She has not received recent steroids, has never been seen by Ortho/spine surgery. No bowel or bladder incontinence or other symptoms at this time. States that the pain is 10/10 it is hard for her to transfer. MD elicited complaint: back pain Onset (ago): month(s) Timing: constant Severity: severe Similar Symptoms Previously: Yes Location: lumbar spine Radiation: left leg below the knee Exacerbating factors: movement Associated symptoms: Deny abdominal pain, chills, fever(s), nausea or vomiting Related Data Previous Rx's Medication Instructions Recorded albuterol sulfate 90 mcg/actuation 2 puff inhalation QID PRN 12/10/22 aerosol inhaler shortness of breath or wheezing #6.7 grams cyanocobalamin (vitamin B-12) 1,000 mcg IM .monthly #1 mL 06/02/24 1,000 mcg/mL injection solution duloxetine 30 mg capsule,delayed 30 mg PO BID #60 caps 06/02/24 release (Cymbalta) famotidine 40 mg tablet (Pepcid) 40 mg PO DAILY #30 tabs 06/02/24 hydroxyzine pamoate 25 mg capsule See Rx Instructions PO .COMPLEX 06/02/24 anxiety #90 caps magnesium oxide 400 mg PO BID #60 tabs 06/02/24 nortriptyline 75 mg capsule 75 mg PO .at bedtime #30 caps 06/02/24 polyethylene glycol 3350 17 17 g PO BID PRN constipation #510 06/02/24 gram/dose oral powder (Miralax) grams propranolol 10 mg tablet 10 mg PO BID #60 tabs 06/02/24 syringe with needle 3 mL 22 gauge #1 ea 06/02/24 x 1 tizanidine 4 mg tablet 4 mg PO BID muscle spasticity #60 06/02/24 tabs zonisamide 100 mg capsule 100 mg PO BID #60 caps 06/02/24 pregabalin 75 mg capsule (Lyrica) 75 mg PO BID #60 caps 07/28/24 prednisone 20 mg tablet 60 mg (3 x 20 mg) PO ONCE 5 days 08/12/24 #15 tabs Allergies Allergy/AdvReac Type Severity Reaction Status Date / Time hydrocodone Allergy ADR-Agitate Verified 08/12/24 17:16 d NSAIDS (Non-Steroidal Allergy ADR-Abdominal Verified 08/12/24 17:16 Anti-Inflamma Pain Review of Systems General: Reports: 10 or more systems reviewed and unremarkable except in HPI and below Const: Denies: fever(s) or chills Card: Denies: chest pain Resp: Denies: dyspnea or productive cough GI: Denies: abdominal pain, nausea, vomiting or diarrhea : Denies: flank pain Musc: Reports: back pain and extremity pain; Denies: neck pain, extremity swelling, joint pain, joint swelling, joint redness, joint warmth, limited range of motion or muscle weakness Skin/Breast: Denies: rash Neuro: Denies: headache(s), numbness in extremities or weakness in extremities PFSH ED PFSH: Medical History Obesity, morbid, BMI 40.0-49.9 Migraine headache with aura TMJ arthralgia Right History of bleeding ulcers 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 Right Surgical History No significant past surgical history Family History Father Cancer Colon, Lung, and Liver Mother Hypertension Lung disease Social History Smoking and tobacco/nicotine status: current every day tobacco/nicotine user Second hand smoke exposure: No Alcohol intake: never Substance/Drug Use: never Adopted: No Caregiver/support person: No Lives independently: Yes Household members: children Housing: House Marital status: Single Number of children: 3 Highest education level completed: 11th Grade service: No Current occupational status: employed Physical Exam Const: COMMON NORMALS: patient oriented x3 ORIENTATION/CONSCIOUSNESS: Yes awake OTHER: Appears uncomfortable, morbidly obese HENMT: COMMON NORMALS: normocephalic and atraumatic HEAD & SCALP: normocephalic and atraumatic Neck/C-Spine: COMMON NORMALS: full ROM Resp: COMMON NORMALS: normal respiratory effort, No retractions and clear to auscultation bilaterally AUSCULTATION: clear to auscultation bilaterally Cardio: COMMON NORMALS: regular rate, regular rhythm, S1 normal heart sound present and S2 normal heart sound present RATE: regular rate RHYTHM: regular rhythm HEART SOUNDS: S1 normal heart sound present and S2 normal heart sound present Back/Pelvis: OTHER: Tenderness palpation of lower back, no signs of trauma or deformity. Straight leg raise positive on the left. Extremity: NARRATIVE EXTREMITY EXAM: No calf swelling or overlying skin changes. DP/PT pulse 2+ bilaterally. Neuro: COMMON NORMALS: patient oriented x3, moves all extremities, no focal motor deficits, no sensory deficits noted and deep tendon reflexes 2+ bilaterally Skin: COMMON NORMALS: no rashes or lesions noted GENERAL SKIN EXAM: no rashes or lesions noted Course Vital Signs: Vital signs: Vital Signs Temperature 97.9 F 08/12/24 17:11 Pulse Rate 70 08/12/24 17:11 Respiratory Rate 18 08/12/24 17:11 Blood Pressure 115/82 08/12/24 17:11 Pulse Oximetry 99 08/12/24 17:11 MDM - Back Pain/Injury Medical Decision Making Patient here for acute on chronic back pain though this time it is down the entirety of her left leg instead of just her low back. I refer her to Ortho/spine for further evaluation and potentially an MRI, she was started on muscle relaxer and pregabalin recently. Will try a short course of steroids to help with any inflammation, due to atraumatic nature no need for imaging at this time. Reasons to return discussed No radiology studies performed this visit Discharge Plan Discharge Patient Disposition: Home Clinical Impression: Left lumbar radiculopathy Condition: Stable Prescriptions: New prednisone 20 mg tablet 60 mg PO ONCE 5 Days Qty: 15 0RF No Action albuterol sulfate 90 mcg/actuation HFA aerosol inhaler 2 puff inhalation QID PRN (Reason: shortness of breath or wheezing) Qty: 6.7 0RF pregabalin [Lyrica] 75 mg capsule 75 mg PO BID Qty: 60 0RF tizanidine 4 mg tablet 4 mg PO BID Qty: 60 2RF magnesium oxide 400 mg magnesium tablet 400 mg PO BID Qty: 60 0RF duloxetine [Cymbalta] 30 mg capsule,delayed release(DR/EC) 30 mg PO BID Qty: 60 2RF cyanocobalamin (vitamin B-12) 1,000 mcg/mL solution 1,000 mcg IM .monthly Qty: 1 2RF nortriptyline 75 mg capsule 75 mg PO .at bedtime Qty: 30 2RF hydroxyzine pamoate 25 mg capsule See Rx Instructions PO .COMPLEX Qty: 90 2RF Rx Instructions: 25mg AM and 50mg PM orally; famotidine [Pepcid] 40 mg tablet 40 mg PO DAILY Qty: 30 5RF polyethylene glycol 3350 [Miralax] 17 gram/dose powder 17 g PO BID PRN (Reason: constipation) Qty: 510 2RF propranolol 10 mg tablet 10 mg PO BID Qty: 60 2RF Rx Instructions: she does not tolerate 20mg (DME) syringe with needle 3 mL 22 gauge x 1 syringe See Rx Instructions .ROUTE .MEDSUPPLY Qty: 1 2RF Rx Instructions: As directed zonisamide 100 mg capsule 100 mg PO BID Qty: 60 2RF Discharge Orders: Discharge ED (Routine); Ordered 08/12/24 Ordered By: Valentino Lawrence Referrals: Meet Joshua, CATTLE DEALER-C [Primary Care Provider] - Patient Instructions: Lumbar Radiculopathy (ED) Activity Restrictions/Additional Instructions: Take steroids as prescribed and follow-up with orthopedic/spine. Continue taking your muscle relaxers at home. Ice and heat, gentle range of motion exercises as tolerated. Please return with any new or worsening. Coding Level of Care Code ED Senior Windows Systems Administrator for Madeline Ramos
--- NOTE | 2024-08-15 07:25 | DCPLANNER ---
messaged ortho for er f/u
== END 2024-08-12 20:26 | disposition home or self-care (01) ==
PROVIDERS: Emergency Provider Physician Assistant; PCP Nurse Practitioner
DX: M54.16 Radiculopathy, lumbar region (principal); Z72.0 Tobacco use
CPT/HCPCS: 96372; 99284; J1100; J2360

== ENCOUNTER → 2024-08-23 14:25 | Outpatient (BNVA) | payer MEDICAID, SELFPAY | PROVIDERS: PCP Nurse Practitioner; Visit Provider Orthopaedic Surgery | DX: M54.50 Low back pain, unspecified (principal); M79.605 Pain in left leg | CPT/HCPCS: 72100 ==

== ENCOUNTER 2024-09-02 14:28 | Outpatient (CLI) | payer MEDICAID, SELFPAY ==
--- NOTE | 2024-09-02 14:30 | MR_ITS ---
WS: [id number] MRI LUMBAR SPINE NONCONTRAST HISTORY: 3-month history of LEFT lower extremity pain and numbness. COMPARISON: Radiographs 08/23/2024 TECHNIQUE: Sagittal and axial multisequence imaging is submitted. Normal lumbar alignment with no compression fractures or marrow edema. Mild disc desiccation at L5-S1. Disc spaces are well-maintained. No fractures. Conus terminates normally at L1-2 disc level. L1-L2: Normal. L2-L3: Normal. L3-L4: Normal. L4-L5: Minimal disc bulging. Small amount of fluid in the facet joints. No stenosis. L5-S1: Mild osteophytic ridging with annular disc bulging. Low signal mass similar to the adjacent di sc measures 1.8 cm in length extends into the LEFT subarticular recess displacing the LEFT S1 nerve r oot and contacting the LEFT thecal sac. Transverse diameter of the disc fragment is 0.9 cm. There is no contact with the parent disc, consistent with a sequestered disc fragment. There is mild osteophyt ic ridging. Mild bilateral foraminal stenosis. Paravertebral soft tissues are normal. MR/MR lumbar spine wo con* [id number] IMPRESSION: 1. Large sequestered disc at L5-S1 extends into the LEFT subarticular recess d isplacing the LEFT S1 nerve root. Sequestered disc fragment measures 1.8 cm in length by 0.9 cm transversely. 2. Mild bilateral foraminal narrowing at L5-S1 predominantly due to osteophyte disease.
== END 2024-09-02 14:29 | disposition home or self-care (01) ==
LOC: RAD 14:28
PROVIDERS: PCP Nurse Practitioner; Visit Provider Orthopaedic Surgery
DX: M51.24 Other intervertebral disc displacement, thoracic region (principal); M25.78 Osteophyte, vertebrae; M79.605 Pain in left leg
CPT/HCPCS: 72148

== ENCOUNTER → 2024-09-15 14:44 | Outpatient (BNVA) | payer MEDICAID, SELFPAY | PROVIDERS: PCP Nurse Practitioner; Visit Provider Orthopaedic Surgery | DX: M54.50 Low back pain, unspecified (principal); M79.605 Pain in left leg | CPT/HCPCS: 36415; 80053; 81001; 85025 ==

== ENCOUNTER 2024-09-23 10:31 | Day surgery (SDC) | payer MEDICAID, SELFPAY ==
[2024-09-23] VITALS (14 sets, daily range): BP systolic 77–109; BP diastolic 50–86; PULSE 71–88; RESP 14–21; TEMP 36.1–36.4; O2SAT 93–99; BMI 41.9
--- NOTE | 2024-09-23 10:44 | W.PM.OPSUD ---
Surgery/Procedure H&P Update DATE OF PROCEDURE: September 23, 2024 DATE H&P PERFORMED: 09/15/24 H&P UPDATE INFORMATION: I have reviewed H&P completed within last 30 days, I have examined patient prior to procedure and No changes to prior documentation PREOP DIAGNOSIS: Herniated disc with radiculopathy PLANNED PROCEDURE: Operation Date: 09/23/24 11:10 Proposed Procedures p Lumbar Spine Decompression(Not Applicable) - Salvador Buckley DO
[2024-09-23 10:55] LABS: OR HCG Qualitative Urine Negative (Negative)
--- NOTE | 2024-09-23 10:57 | P.ANESASSM_ITS ---
Pre-Anesthetic Assessment Height/Weight: Height 5 ft 6 in Weight 260 lb Temp Pulse Resp BP Pulse Ox O2 Del Method 97.0 F L 88 18 108/86 97 Room Air 09/23/24 10:48 09/23/24 10:48 09/23/24 10:48 09/23/24 10:48 09/23/24 10:48 09/23/24 10:48 Preop Diagnosis: Herniated disc with radiculopathy Operation Date: 09/23/24 11:10 Proposed Procedures p Lumbar Spine Decompression(Not Applicable) - Salvador Buckley, DO Was Beta Mark taken within 24 hours: Yes Was Clonidine taken within 24 hours: N/A Social Tobacco and No alcohol Exam alert, oriented x 3 and regular rate & rhythm Diminished breath sounds bilaterally Airway Submandibular: within normal limits Cervical ROM: within normal limits Mallampati: Class II Dentition: loose and full Comments: Comments: Loose left upper incisor that is broken off and wiggly Anesthetic Plan ASA status: 3 Anesthesia: General Other: No prior issues with anesthesia NPO since yesterday History of GERD, controlled on Pepcid Chronic oxycodone use Patient states she has hypotension however she does take propranolol for migraines Current smoker TMJ Labs reviewed and assessable for procedure EKG sinus rhythm Patient has a loose upper left incisor that is broken off Plan for GETA Medications/Allergies Home Medications Medication Instructions Recorded Confirmed Last Taken Type duloxetine 30 mg capsule,delayed 30 mg PO BID #60 caps 06/02/24 09/22/24 09/23/24 Rx release (Cymbalta) famotidine 40 mg tablet (Pepcid) 40 mg PO DAILY #30 tabs 06/02/24 09/22/24 09/23/24 Rx hydroxyzine pamoate 25 mg capsule See Rx Instructions PO .COMPLEX 06/02/24 09/22/24 09/23/24 Rx anxiety #90 caps DME: Walker #1 ea 08/18/24 09/15/24 Unknown Rx chlorzoxazone 500 mg tablet 500 mg PO QID #120 tabs 08/18/24 09/22/24 09/22/24 Rx cyanocobalamin (vitamin B-12) 1,000 mcg IM .monthly #1 mL 08/18/24 09/22/24 09/23/24 Rx 1,000 mcg/mL injection solution nortriptyline 75 mg capsule 75 mg PO .at bedtime #30 caps 08/18/24 09/22/24 09/22/24 Rx polyethylene glycol 3350 17 17 g PO BID PRN constipation #510 08/18/24 09/23/24 Unknown Rx gram/dose oral powder (Miralax) grams pregabalin 150 mg capsule (Lyrica) 150 mg PO TID #90 caps 08/18/24 09/22/24 09/23/24 Rx propranolol 10 mg tablet 10 mg PO BID #60 tabs 08/18/24 09/22/24 09/23/24 Rx syringe with needle 3 mL 22 gauge #1 ea 08/18/24 09/15/24 Unknown Rx x 1 zonisamide 100 mg capsule 100 mg PO BID #60 caps 08/18/24 09/22/24 09/23/24 Rx naloxone 4 mg/actuation nasal 1 spray intranasal Q2M #2 ea 09/05/24 09/23/24 Unknown Rx spray (Narcan) oxycodone 5 mg tablet 5 mg PO Q8H PRN pain 7 days #21 09/15/24 09/22/24 09/23/24 Rx tabs Allergies Allergy/AdvReac Type Severity Reaction Status Date / Time hydrocodone Allergy ADR-Agitate Verified 09/23/24 10:53 d NSAIDS (Non-Steroidal Allergy ADR-Abdominal Verified 09/23/24 10:53 Anti-Inflamma Pain PFSH Anesthesia Medical History Obesity, morbid, BMI 40.0-49.9 Migraine headache with aura TMJ arthralgia Right History of bleeding ulcers 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 Right Surgical History No significant past surgical history Family History Father Cancer Colon, Lung, and Liver Mother Hypertension Lung disease Social History Smoking and tobacco/nicotine status: current every day tobacco/nicotine user Second hand smoke exposure: No Alcohol intake: never Substance/Drug Use: never Adopted: No Caregiver/support person: No Lives independently: Yes Household members: children Housing: House Marital status: Single Number of children: 3 Highest education level completed: 11th Grade Lost My Name service: No Current occupational status: employed Data Anesthesia Cardiac Studies: No Data to Display
[2024-09-23] MEDS: sodium chloride 0.9% 1,000 ML 30 ML IV (11:06)
[2024-09-23] MEDS: ceFAZolin 2,000 mg SDV 2000 MG IVP (11:13)
[2024-09-23] MEDS: lidocaine-epi 1% 20 mL INJ INJECTION (11:46)
--- NOTE | 2024-09-23 12:19 | XR_ITS ---
WS: [id number] INTRAOPERATIVE TECHNIQUE: 2 Spot fluoroscopic images for intraoperative purposes. FLUOROSCOPY TIME: 3 seconds CLINICAL INFORMATION: OR PICS FINDINGS: Localization marker overlying the dorsal L5-S1 interspace XR/XR lumbar spine 2-3V* [id number] IMPRESSION: Images obtained for intraoperative purposes.
--- NOTE | 2024-09-23 12:33 | P.ANES_ITS ---
Anesthesia Procedures Procedure/Date: 09/23/24 Endotracheal Intubation with Glidescope Procedure Narrative: A time out was performed. My hands were washed immediately prior to the procedure. I wore a surgical cap, mask with protective eyewear, gown and gloves throughout the procedure. The patient was placed on a site promotion agent including continuous pulse oximetry. The patient received Midazolam, Lidocaine, Propofol, Fentanyl for induction and Rocuronium for adequate paralysis. Please see the Anesthesiology staff documentation for exact dosing. Using a glidescope and a size 7.5cm endotracheal tube with stylet, the patient was intubated on the first attempt. The stylet was removed and cuff balloon was inflated. Appropriate endotracheal tube position was confirmed by direct visualization of vocal cord passage, fogging of the tube, EtCO2, and symmetric breath sounds. The tube was secured at 21cm at the lips. Other Information: Glidescope was used because patient endorsed having loose tooth in pre-op. Supervising Anesthesiologist: Dr. Maier
--- NOTE | 2024-09-23 12:34 | PM.OP ---
Operative Report Date of procedure: September 23, 2024 Pre-op diagnosis: L5-S1 disc herniation with S1 radiculopathy on the left Post-op diagnosis: same Procedure done: Left-sided L5-S1 laminectomy with partial facetectomy and discectomy Surgeon: Salvador Buckley DO Estimated blood loss (mL): 5 Procedure: Left-sided L5-S1 laminectomy with partial facetectomy and discectomy Patient is brought to the operative suite. After undergoing anesthesia they are placed in the prone position. All areas of impingement are well padded. Patient is then prepped and draped in the normal sterile fashion. A skin incision is made over the L5-S1 level. This is confirmed under c-arm guidance. A series of dilators are passed and the tubular retractor is docked on the L5 lamina. A bovie is used to clear the soft tissue off the lamina and the L 5/S1 facet joint. A high speed lb is then used to perform the laminectomy and take down the medial aspect of the L 5/S1 facet joint. A kerrison rongeure was then used to take down the remaining lamina and smooth the edge of the laminectomy up to the point where the ligamentum flavum attaches. Attention was then brought to the medial aspect of the facet joint. The remaining medial aspect of the superior and inferior aspect of the facet joint were taken down with the kerrison from the pedicle of L5 to S1. The facet joint had significant hypertrophy. Attention was then brought to the Ligamentum Flavum. The ligament was taken down from the lamina of L5 to S1 and out medially to the remaining facet joint. The ligament was thick. The dura was then exposed. The dura was in good repair. S1 nerve root was reflected medially. The sequestered disc fragment was identified teased out with a curette Jude retractor was used to retract the S1 nerve root. The large disc fragment was removed piecemeal in 3 large pieces. The space was irrigated small fragments were removed. The L5 nerve was then traced with a curette out the L5/S1 foramen and found to be adequately decompressed. The s1 nerve was traced with a curette around the S1 pedicle. The lateral recess was opened with a kerrison helping to further decompress the S1 nerve. Wound is then irrigated copiously with saline and surgiflo is used to stop any bleeding. The tubular retractor is removed and the wound is closed with vicryl and monocryl suture. Glue is then used to protect the wound. A sterile dressing is then placed. Patient was then placed in the supine position and transferred to the PACU in stable condition.
[2024-09-23] MEDS: fentaNYL 50 mcg/mL INJ 2mL IVP (13:09)
[2024-09-23] MEDS: oxyCODONE 5 mg IR Tab/Cap PO (13:30)
--- NOTE | 2024-09-23 14:15 | ANE.PACU2 ---
Inpatient post-anesthesia follow up: Airway intact: Yes Vital signs: Temperature 97.1 F Pulse Rate 71 Respiratory Rate 18 Blood Pressure 108/81 Pulse Oximetry 99 Oxygen Delivery Me thod Room Air Oxygen Flow Rate 6 Fraction of Inspir ed Oxygen Hydration adequate: Yes Nausea and vomiting: No Pain level: 1 Mental status: Baseline
== END 2024-09-23 14:15 | disposition home or self-care (01) ==
PROVIDERS: Student in an Organized Health Care Education/Training Program; PCP Nurse Practitioner; Visit Provider Orthopaedic Surgery
PROC: (CPT 63005; principal; 2024-09-23 10:50)
DX: M51.17 Intervertebral disc disorders with radiculopathy, lumbosacral region (principal); K21.9 Gastro-esophageal reflux disease without esophagitis; Z79.891 Long term (current) use of opiate analgesic; F17.200 Nicotine dependence, unspecified, uncomplicated; E66.01 Morbid (severe) obesity due to excess calories; Z68.41 Body mass index [BMI] 40.0-44.9, adult
CPT/HCPCS: 63030; 72100; 76000; 81025; J0131; J0690; J1100; J2405; J2704; J3010; J3490; J7030

== ENCOUNTER → 2024-11-09 14:38 | Outpatient (BNVA) | payer MEDICAID, SELFPAY | PROVIDERS: PCP Nurse Practitioner; Visit Provider Nurse Practitioner | DX: E53.8 Deficiency of other specified B group vitamins (principal); G43.119 Migraine with aura, intractable, without status migrainosus | CPT/HCPCS: 80053; 82306; 82607; 84443 ==

== ENCOUNTER → 2024-12-14 13:42 | Outpatient (BNVA) | payer MEDICAID, SELFPAY | PROVIDERS: PCP Nurse Practitioner; Visit Provider Clinical Nurse Specialist Adult Health | DX: R30.0 Dysuria (principal); N30.01 Acute cystitis with hematuria | CPT/HCPCS: 81000; 87086 ==

== ENCOUNTER → 2025-05-09 14:37 | Outpatient (BNVA) | payer MEDICAID, SELFPAY | PROVIDERS: PCP Nurse Practitioner; Visit Provider Nurse Practitioner | DX: E53.8 Deficiency of other specified B group vitamins (principal); M54.50 Low back pain, unspecified; M79.605 Pain in left leg; E61.1 Iron deficiency | CPT/HCPCS: 80053; 82306; 82607; 84443; 85025 ==

== ENCOUNTER → 2025-05-11 14:58 | Outpatient (BNVA) | payer MEDICAID, SELFPAY | PROVIDERS: PCP Nurse Practitioner; Visit Provider Orthopaedic Surgery | DX: Z98.890 Other specified postprocedural states (principal); M54.50 Low back pain, unspecified; M79.605 Pain in left leg | CPT/HCPCS: 72100 ==

== ENCOUNTER 2025-06-01 15:34 | Outpatient (CLI) | payer MEDICAID, SELFPAY ==
--- NOTE | 2025-06-01 16:45 | MR_ITS ---
WS: [id number] MRI LUMBAR SPINE NONCONTRAST HISTORY: Severe low back pain radiating into LEFT leg. Prior surgery September 2024. COMPARISON: 09/02/2024 TECHNIQUE: Sagittal and axial multisequence imaging is submitted. Normal lumbar alignment with no compression fractures or marrow edema. Mild degenerative changes at the L5-S1 disc level and chronic endplate changes at L5. Conus terminates normally at L1-2 disc level. L1-L2: Normal. L2-L3: Mild facet and ligamentum flavum hypertrophy. L3-L4: Mild facet and ligamentum flavum hypertrophy. L4-L5: Mild disc bulging with small amount of fluid in the facet joints. No significant stenosis. L5-S1: Mild disc bulging. New small central disc protrusion. Additional low signal focus in the LEFT subarticular recess contacting the LEFT S1 nerve root is reidentified. This may be a recurrent disc or postoperative scar tissue. Small amount of fluid in the LEFT facet joint. LEFT hemilaminectomy defect. There is also mild encroachment upon the RIGHT S1 nerve root by disc and facet disease. Mild osteophytic ridging resulting in mild bilateral foraminal stenosis. Paravertebral soft tissues are negative. MR/MR lumbar spine wo con* [id number] IMPRESSION: 1. Reidentified is low signal focus in the LEFT subarticular recess of L5-S1, similar to the prior study with displacement of the LEFT S1 nerve root and thec al sac. If this disc was surgically excised this may be recurrent disc or scar tissue. 2. Additional small central disc protrusion at L5-S1. 3. Bilateral mild foraminal stenosis at L5-S1 due to osteophytosis and facet d isease.
== END 2025-06-01 15:35 | disposition home or self-care (01) ==
LOC: RAD 15:34
PROVIDERS: PCP Nurse Practitioner; Visit Provider Orthopaedic Surgery
DX: M51.27 Other intervertebral disc displacement, lumbosacral region (principal); M51.362 Other intervertebral disc degeneration, lumbar region with discogenic back pain and lower extremity pain; M48.061 Spinal stenosis, lumbar region without neurogenic claudication
CPT/HCPCS: 72148

== ENCOUNTER → 2025-06-06 17:01 | Outpatient (BNVA) | payer MEDICAID, SELFPAY | PROVIDERS: PCP Nurse Practitioner; Visit Provider Orthopaedic Surgery | DX: Z01.818 Encounter for other preprocedural examination (principal) | CPT/HCPCS: 36415; 80053; 81001; 85025 ==

== ENCOUNTER → 2025-06-16 10:22 | Outpatient (BNVA) | payer MEDICAID, SELFPAY | PROVIDERS: PCP Nurse Practitioner; Visit Provider Family Medicine | DX: Z01.818 Encounter for other preprocedural examination (principal) | CPT/HCPCS: 81003; 87086 ==

== ENCOUNTER 2025-06-23 05:52 | Day surgery (SDC) | payer MEDICAID, SELFPAY ==
[2025-06-23] VITALS (14 sets, daily range): BP systolic 91–123; BP diastolic 54–76; PULSE 63–83; RESP 12–20; TEMP 36.1–36.3; O2SAT 93–100; BMI 39.9
--- NOTE | 2025-06-23 06:41 | W.PM.OPSUD ---
Surgery/Procedure H&P Update DATE OF PROCEDURE: June 23, 2025 DATE H&P PERFORMED: 06/06/25 H&P UPDATE INFORMATION: I have reviewed H&P completed within last 30 days, I have examined patient prior to procedure and No changes to prior documentation PREOP DIAGNOSIS: L5/S1 disc herniation with left-sided radiculopathy PLANNED PROCEDURE: Operation Date: 06/23/25 07:00 Proposed Procedures p Spine Decompression Lumbar Decompression(Not Applicable) - Salvador Buckley DO
--- NOTE | 2025-06-23 06:45 | ANES.PREANE2 ---
Pre-Anesthetic Assessment Height/Weight: Height 1.68 m Weight 112.037 kg Temp Pulse Resp Pulse Ox O2 Del Method 97.2 F L 71 18 97 Room Air 06/23/25 06:11 06/23/25 06:11 06/23/25 06:11 06/23/25 06:11 06/23/25 06:11 Preop Diagnosis: L5/S1 disc herniation with left-sided radiculopathy Operation Date: 06/23/25 07:00 Proposed Procedures p Spine Decompression Lumbar Decompression(Not Applicable) - Salvador Buckley, DO Familial anesthetic complications: None Was Beta Mark taken within 24 hours: N/A Was Clonidine taken within 24 hours: N/A Last intake: Intake Last Liquid Date 06/22/25 Last Liquid Time 23:00 Last Solid Date 06/22/25 Last Solid Time 18:30 Social No alcohol and No tobacco vapes Exam alert, oriented x 3, clear to auscultation bilaterally and regular rate & rhythm Airway Mallampati: Class II Dentition: other (poor dentition) GI Gastroesophageal Reflux Disease Metabolic Morbid Obesity Anesthetic Plan ASA status: 3 Anesthesia: General Risk of > 500 ml blood loss (7ml/kg in children): No Medications/Allergies Home Medications ?Medication ?Instructions ?Recorded ?Confirmed ?Last Taken ?Type DME: Walker #1 ea 08/18/24 06/06/25 06/23/25 04:20 Rx cholecalciferol (vitamin D3) 125 125 mcg PO DAILY #30 caps 05/09/25 06/22/25 06/23/25 04:20 Rx mcg (5,000 unit) capsule cyanocobalamin (vitamin B-12) 1,000 mcg IM .monthly #1 mL 05/09/25 06/22/25 06/23/25 04:20 Rx 1,000 mcg/mL injection solution duloxetine 30 mg capsule,delayed 30 mg PO BID #60 caps 05/09/25 06/22/25 06/23/25 04:20 Rx release eszopiclone 1 mg tablet (Lunesta) 1 mg PO BEDTIME #30 tabs 05/09/25 06/22/25 06/23/25 04:20 Rx famotidine 40 mg tablet (Pepcid) 40 mg PO DAILY #30 tabs 05/09/25 06/22/25 06/23/25 04:20 Rx hydroxyzine pamoate 25 mg capsule 25 mg PO BID anxiety #60 caps 05/09/25 06/22/25 06/23/25 04:20 Rx propranolol 10 mg tablet 10 mg PO BID #60 tabs 05/09/25 06/22/25 06/23/25 04:20 Rx sucralfate 1 gram tablet (Carafate) 1 g PO BID #60 tabs 05/09/25 06/22/25 06/23/25 04:20 Rx syringe with needle 3 mL 22 gauge #1 ea 05/09/25 06/06/25 06/23/25 04:20 Rx x 1 zonisamide 100 mg capsule 100 mg PO BID #60 caps 05/09/25 06/22/25 06/23/25 04:20 Rx oxycodone 5 mg tablet 5 mg PO Q8H pain 10 days #30 tabs 06/17/25 06/22/25 06/23/25 04:20 Rx Allergies Allergy/AdvReac Type Severity Reaction Status Date / Time hydrocodone Allergy ADR-Agitate Verified 06/23/25 06:06 d NSAIDS (Non-Steroidal Allergy ADR-Abdominal Verified 06/23/25 06:06 Anti-Inflamma Pain [facility] Anesthesia Medical History (Updated 06/22/25 @ 10:26 by Tiana Downing RN) Obesity, morbid, BMI 40.0-49.9 Migraine headache with aura TMJ arthralgia Right History of bleeding ulcers 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 Surgical History (Updated 06/22/25 @ 10:26 by Tiana Downing RN) History of lumbar discectomy 09/23/24 at [facility] Family History Father Cancer Colon, Lung, and Liver Mother Hypertension Lung disease Social History Smoking and tobacco/nicotine status: current every day tobacco/nicotine user Second hand smoke exposure: No Alcohol intake: never Substance/Drug Use: never Adopted: No Caregiver/support person: No Lives independently: Yes Household members: children Housing: House Marital status: Single Number of children: 3 Highest education level completed: 11th Grade service: No Current occupational status: employed
[2025-06-23] MEDS: ceFAZolin 2,000 mg SDV 2000 MG IVP (06:56)
[2025-06-23] MEDS: lidocaine-epi 1% 20 mL INJ 10 ML INJECTION (07:47)
--- NOTE | 2025-06-23 08:01 | XR_ITS ---
NOTE: Report was unsigned for reason: Ordering provider was edited. Original Signature date and time was: 06/23/25 @ 0815 WS: [id number] XR lumbar spine 2-3V* [id number] REASON FOR EXAM: OR PICS FINDINGS: Surgical device overlying the left L5-S1 disc space. [facility] XR/XR lumbar spine 2-3V* [id number] IMPRESSION: Lumbar localization and surgery as above.
--- NOTE | 2025-06-23 08:26 | PM.OP ---
Operative Report Date of procedure: June 23, 2025 Pre-op diagnosis: L5/S1 left-sided disc re -herniation with radiculopathy Post-op diagnosis: same Procedure done: Revision L5/S1 laminectomy with partial facetectomy and discectomy Surgeon: Salvador Buckley DO Estimated blood loss (mL): 5 Procedure: Revision L5/S1 laminectomy with partial facetectomy and discectomy Patient is brought to the operative suite. After undergoing anesthesia they are placed in the prone position. All areas of impingement are well padded. Patient is then prepped and draped in the normal sterile fashion. A skin incision is made over the L5/S1 level. This is confirmed under c-arm guidance. A series of dilators are passed and the tubular retractor is docked on the L5 lamina. A bovie is used to clear the soft tissue off the lamina and the L 5/S1 facet joint. A high speed lb is then used to perform the laminectomy and take down the medial aspect of the L 5/S1 facet joint. A kerrison rongeure was then used to take down the remaining lamina and smooth the edge of the laminectomy up to the point where the ligamentum flavum attaches. Attention was then brought to the medial aspect of the facet joint. The remaining medial aspect of the superior and inferior aspect of the facet joint were taken down with the kerrison from the pedicle of L5 to S1. The facet joint had significant hypertrophy. Attention was then brought to the Ligamentum Flavum. The ligament was taken down from the lamina of L5 to S1 and out medially to the remaining facet joint. The ligament was scarred down. The dura was then exposed. The dura was in good repair. The S1 nerve root was reflected medially the disc was scarred down this was freed up with a curved curette. Once this was freed up large amounts of disc fragment were then removed with the pituitary. The disc base was irrigated and all free fragments were removed with pituitary pituitary. Until the nerve was completely free. The L5 nerve was then traced with a curette out the L L5/S1 foramen and found to be adequately decompressed. The S1 nerve was traced with a curette around the S1 pedicle. The lateral recess was opened with a kerrison helping to further decompress the S1 nerve. Wound is then irrigated copiously with saline and surgiflo is used to stop any bleeding. The tubular retractor is removed and the wound is closed with vicryl and monocryl suture. Steri strips were applied. A sterile dressing is then placed. Patient was then placed in the supine position and transferred to the PACU in stable condition.
[2025-06-23] MEDS: fentaNYL 50 mcg/mL INJ 2mL IVP (08:32)
--- NOTE | 2025-06-23 08:38 | PC.NURSE ---
pain 7/10. pain med given
[2025-06-23] MEDS: oxyCODONE 5 mg IR Tab/Cap PO (09:45)
--- NOTE | 2025-06-23 10:15 | ANE.PACU2 ---
Inpatient post-anesthesia follow up: Airway intact: Yes Vital signs: Temperature 97.3 F Pulse Rate 67 Respiratory Rate 18 Blood Pressure 101/73 Pulse Oximetry 98 Oxygen Delivery Me thod Room Air Oxygen Flow Rate 3 Fraction of Inspir ed Oxygen Hydration adequate: Yes Nausea and vomiting: No Pain level: 1 Mental status: Baseline
== END 2025-06-23 10:15 | disposition home or self-care (01) ==
PROVIDERS: PCP Nurse Practitioner; Visit Provider Orthopaedic Surgery
PROC: (CPT 63030; principal; 2025-06-23 07:00)
DX: M51.17 Intervertebral disc disorders with radiculopathy, lumbosacral region (principal); K21.9 Gastro-esophageal reflux disease without esophagitis; E66.01 Morbid (severe) obesity due to excess calories; Z68.39 Body mass index [BMI] 39.0-39.9, adult; F17.200 Nicotine dependence, unspecified, uncomplicated; Z79.891 Long term (current) use of opiate analgesic
CPT/HCPCS: 63030; 72100; 76000; J0131; J0690; J1100; J2250; J2371; J2405; J2704; J3010; J3490; J7030; J9999

== ENCOUNTER 2025-08-11 09:34 | Outpatient (CLI) | payer MEDICAID, SELFPAY ==
--- NOTE | 2025-08-11 09:40 | MM_ITS ---
WS: [id number] BILATERAL SCREENING DIGITAL TOMOSYNTHESIS MAMMOGRAM WITH CAD HISTORY: Z12.31 - Encounter for screening mammogram for malignant ... COMPARISON: 02/18/2023 Bilateral CC and MLO views with tomosynthesis and synthetic mammography submitted. Computer aided detection analyzed. Breast composition: The breasts are heterogeneously dense, which may obscure small masses. No suspicious masses, microcalcifications or architectural distortion. There is several scattered nodules within each breast. These appear to be lymph nodes and are stable. No distortion. MM/MM scr tomosynthesis [id number] IMPRESSION: BI-RADS: 2 - Benign FOLLOW UP: 1 Year Follow-up
== END 2025-08-11 09:35 | disposition home or self-care (01) ==
LOC: RAD 09:34
PROVIDERS: PCP Nurse Practitioner; Visit Provider Nurse Practitioner
DX: Z12.31 Encounter for screening mammogram for malignant neoplasm of breast (principal); R92.333 Mammographic heterogeneous density, bilateral breasts; R59.0 Localized enlarged lymph nodes
CPT/HCPCS: 77063; 77067

== ENCOUNTER 2025-09-29 09:22 | Outpatient (CLI) | payer MEDICAID, SELFPAY ==
--- NOTE | 2025-09-29 09:30 | MR_ITS ---
WS: [id number] MRI LUMBAR SPINE NONCONTRAST TECHNIQUE: Sagittal T1, T2 and STIR imaging. Axial T1 and T2 imaging. CLINICAL INFORMATION: pain COMPARISON: MRI 06/01/2025 FINDINGS: Counting performed from the craniocervical junction with 7 cervical, 11 thoracic rib-bearing vertebral bodies. Lumbar vertebral bodies labeled L1-L5 in keeping with the prior numbering convention. Tiny riblets at L1. L1-L2: Normal. L2-L3: Mild facet arthropathy. Spinal canal and foramen are patent. L3-L4: Minimal annular bulging. Mild facet arthropathy. Spinal canal and foramen are patent. L4-L5: Mild annular bulging. Slight effacement of the ventral thecal sac. Narrowing of the subarticular recess bilaterally. Moderate facet arthropathy. Foramen are patent. L5-S1: Mild disc bulge with endplate ridging. Endplate degenerative changes. Disc material in the LEFT subarticular recess has been resected compared to previous. Normal postoperative granulation tissue in this area. Shallow central protrusion L5-S1 slightly impinges the traversing LEFT greater than RIGHT S1 nerve roots. This appears slightly progressed compared to previous. Moderate facet arthropathy. Mild LEFT greater than RIGHT foraminal narrowing. Visualized pelvic bony structures: Normal. Paravertebral soft tissues: Normal. MR/MR lumbar spine wo con* [id number] IMPRESSION: 1. Previously described disc material in the LEFT subarticular recess L5-S1 stroud s been resected. Small amount of postoperative granulation tissue. 2. Residual shallow central protrusion L5-S1 slightly impinges the LEFT greate r than RIGHT S1 nerve roots. This appears slightly progressed compared to previ ous. 3. Prior postoperative changes LEFT L5-S1 hemilaminectomy. Small amount of ins pissated fluid in the LEFT hemilaminectomy defect. 4. Mild annular bulging L4-5 with slight narrowing of the subarticular recess bilaterally. 5. Mild LEFT greater than RIGHT L5-S1 foraminal narrowing with moderate facet arthropathy similar to previous.
== END 2025-09-29 09:23 | disposition home or self-care (01) ==
LOC: RAD 09:23
PROVIDERS: PCP Nurse Practitioner; Visit Provider Orthopaedic Surgery
DX: M54.50 Low back pain, unspecified (principal); M79.605 Pain in left leg; Z98.890 Other specified postprocedural states
CPT/HCPCS: 72148